=== PATIENT | female | born 1955 | race Caucasian/White ===

== ENCOUNTER 2025-01-14 01:17 | Emergency (ER) | payer MEDICARE, MEDICAID, SELFPAY ==
[2025-01-14 01:20] VITALS: PULSE 102; O2SAT 95; BMI 15.0
[2025-01-14 01:24] VITALS: BP 91/64; PULSE 126; RESP 20; O2SAT 97
--- NOTE | 2025-01-14 01:30 | XR_ITS ---
EXAMINATION: AP chest single view TECHNIQUE: AP portable upright chest single view Date and time: January 14, 2025, 0231 hours, comparison January 03, 2024 INDICATIONS: Shortness of breath and weakness beginning 2 weeks ago FINDINGS: Significant hyperexpansion Normal heart size Mildly prominent central pulmonary arteries Suspicious for 8 mm pulmonary nodule left upper lobe No pneumonia or pulmonary edema Prominent osteopenia IMPRESSION: COPD with significant hyperexpansion Recommend AP lordotic chest to exclude 8 mm pulmonary nodule left upper lobe
--- NOTE | 2025-01-14 01:30 | EKG_ITS ---
[facility] Test Date: 2025-01-14 Pat Name: NITISH NAVARRETE Department: Room: - Gender: Female [employer]: : 1955 Requested By: Melissa Trevino Order Number: [id number] Natacha MD: Melissa Trevino Measurements Intervals [place] Rate: 104 P: 81 NH: 120 QRS: 80 QRSD: 69 T: 76 QT: 338 QTc: 446 Interpretive Statements SINUS TACHYCARDIA WITH FREQUENT ECTOPIC PREMATURE COMPLEXES ABNORMAL RHYTHM ECG No previous ECG available for comparison /store/S0/[id number].pdf
--- NOTE | 2025-01-14 01:38 | PD.EDSOB ---
ED SOB =RME/HPI General Chief Complaint: Shortness of Breath/Dyspnea Stated Complaint: SOB Time Seen by Provider: 01/14/25 01:27 Arrival date/time: 01/14/25 01:17 RME / HPI RME / HPI Narrative: Patient is a 70-year-old female with a past medical history of hyperlipidemia, COPD, 25 pack year smoking history who presented to the emergency room with a chief complaint of shortness of breath and cough for the past 2 days. Patient takes both Advair and albuterol as needed at home when he gets short of breath. Denied sick contacts. No fevers, shakes, chills, sweats. No chest pain or dyspnea. No Diarrhea. NO urinary pain. Related Data Home Medications ?Medication ?Instructions ?Recorded ?Confirmed lovastatin 20 mg tablet 20 mg PO QPM 05/26/19 02/02/22 albuterol sulfate 90 mcg/actuation 1 puff inhalation Q4H PRN 02/02/22 02/02/22 aerosol inhaler (Ventolin HFA) SHORNTESS OF BREATH cholecalciferol (vitamin D3) 50 50 mcg PO QDAY 02/02/22 02/02/22 mcg (2,000 unit) capsule (Vitamin D3) sertraline 25 mg tablet 25 mg PO QDAY 02/02/22 02/02/22 Previous Rx's ?Medication ?Instructions ?Recorded fluticasone 250 mcg-salmeterol 50 1 inh inhalation BID #60 ea 02/03/22 mcg/dose blistr powdr for inhalation (Advair Diskus) phenazopyridine 200 mg tablet 200 mg PO TID 6 doses #6 tabs 04/04/23 (Pyridium) cefuroxime axetil 500 mg tablet 500 mg PO BID #14 tabs 02/10/25 Allergies Allergy/AdvReac Type Severity Reaction Status Date / Time No Known Allergies Allergy Verified 02/18/25 11:05 Review of Systems Review of Systems Narrative Review of Systems: General appearance: NO weight change, NO fatigue, NO weakness, NO fever, NO chills, NO night sweats, No cough Skin: NO rash, NO itching, NO sores, NO moles HEENT: NO Trauma, NO nausea, NO vomiting, NO visual changes, NO blurry vision, NO double vision, NO tinnitus, NO vertigo, NO ear discharge, NO rhinorrhea, NO stuffiness, NO sneezing, NO allergy, NO epistaxis. NO Hoarseness, NO sore throat, NO swollen neck. Cardiac: NO Palpitations, NO dyspnea on exertion, NO orthopnea, NO paroxysmal nocturnal dyspnea, NO edema Respiratory: Yes Shortness of Breath, NO Wheezing, Yes Cough, NO Sputum, NO hemoptysis GI:NO appetite, NO nausea, NO vomiting, NO dysphagia, NO changes in bowel frequency, NO stool color, NO diarrhea, NO constipation, NO hemetemesis, NO hemorrhoids, NO melena, NO hematechezia, NO abdominal pain, NO jaundice Renal: NO frequency, NO hesitancy, NO urgency, NO hematuria, NO nocturia, NO incontinence MSK: NO muscle weakness, NO gout, NO arthritis, NO muscle stiffness Neuro: NO headaches, NO tremors, NO weakness, NO paralysis, NO seizures, NO loss of consciousness, NO numbness. Hem: NO anemia, NO easy bruising/bleeding, NO petechiae, NO purpura Endo: NO heat/cold intolerance, NO excessive sweating, NO polyuria, NO polydipsia, NO polyphagia, NO thyroid problems, NO diabetes Pysch: NO mood, NO anxiety, NO depression ED Exam Narrative Physical exam: General Appearance: Alert & Oriented X3, thin female who is lying in bed in mild respiratory distress with active cough HEENT: atraumatic. Conjunctivae pin and moist. PERRLA. External ear without lesion or discharge. Intraoral mucosa pink, no lesions. Cardio: Normal Rate and Rhythm with S1 and S2 heart sounds. No murmurs or extra heart sounds auscultated. No bruits on carotid auscultation. No peripheral edema or cyanosis. Lungs: Symmetric with good expansion. Chest and back non-tender. Breath sounds vesicular with mild wheezing noted. Abdomen: Mild tenderness, Non-distended, Normal Reactive Bowel Sounds Neuro: Alert, cooperative, oriented to person, place, and time. Speech clear. CN grossly intact. Upper motor strength 5/5 and Lower motor strength 5/5. Sensation intact. Course Course Course Narrative: CBC CMP UA chest x-ray EKG Quality Measures none Orders Category Date Time Status Bedside COVID-19 Antigen Test NOW Care 01/14/25 01:31 Completed EKG (ED ONLY) *Do not use* NOW Care 01/14/25 01:30 Completed EKG (ED Only) Stat Exams 01/14/25 01:30 Draft XR chest 1V portable Stat Exams 01/14/25 01:30 Completed B-Type Natriuretic Peptide Stat Lab 01/14/25 01:48 Completed CBC Stat Lab 01/14/25 01:28 Completed Cocci Serology IgM with reflex to IgG [Cocci Serology, Lab 01/14/25 01:48 Completed Unk History] Stat Cocci Serology, IgG Stat Lab 01/14/25 01:48 Completed Comprehensive Metabolic Panel Stat Lab 01/14/25 01:48 Completed Drug Screen,Urine Stat Lab 01/14/25 02:00 Completed FLU A&B [Influenza A & B Rapid Panel] Stat Lab 01/14/25 01:51 Completed Magnesium Stat Lab 01/14/25 01:48 Completed Troponin I Stat Lab 01/14/25 01:48 Completed Urinalysis, C/S if Indicated Stat Lab 01/14/25 02:00 Completed Urine Culture Stat Lab 01/14/25 02:00 Completed Ipratropium [place] Rt Deyanira [Atrovent Rt Dyeanira] Med 01/14/25 01:30 Discontinued 1 mg INH X1 ONE Levalbuterol Rt [Xopenex Rt Deyanira] Med 01/14/25 01:30 Discontinued 1.25 mg INH X1 ONE MethylPREDNISolone. [SoluMEDROL Inj] Med 01/14/25 01:31 Discontinued 40 mg IVP X1 ONE Sodium Chloride Rt Deyanira 0.9% [NS Rt Deyanira 0.9%] Med 01/14/25 01:30 Discontinued 3 ml INH PRN PRN guaiFENesin SYRUP [Robitussin Syrup] Med 01/14/25 01:32 Discontinued 100 mg PO X1 ONE Vital Signs Vital signs: Vital Signs Pulse Rate 126 H 01/14/25 01:24 Respiratory Rate 20 01/14/25 01:24 Blood Pressure 91/64 01/14/25 01:24 Pulse Oximetry (%) 97 01/14/25 01:24 Oxygen Delivery Method Nasal Cannula 01/14/25 01:24 Oxygen Flow Rate 3 01/14/25 01:24 Shortness of Breath / Dyspnea Patient data External records reviewed:: [facility] previous records Clinical information provided by:: patient Social determinants that could affect healthcare access:: none Patient has the following chronic illnesses:: Patient is a 70-year-old female with a past medical history of hyperlipidemia, COPD secondary to smoking history about 25 pack year history who presented to the emergency room with a chief complaint of shortness of breath and cough. Patient takes his Advair and albuterol as needed. How is presenting disease/condition affected by chronic disease/condition?: exacerbated by (COPD ) Evaluation data The following diagnostics were reviewed and interpreted by me:: lab results and radiology exam(s) Lab and/or radiology exams considered but not ordered:: None Interpretation Summary: Patient is a 70 year old female that has a past medical history of COPD exacerbation. No leukocytosis. Negative COVID. Negative Flu. UA noted wbc of 73 and no bacteria and denied symptoms of UTI. Cocci ordered. Chest x-ray no pneumonia noted. COPD exacerbation which improved after Ipratropium and Levalbuterol. - The patient's plan was discussed with attending Dr. Garcia Trevino MD PGY2 Internal Medicine Medications / Prescriptions Medications or Prescriptions considered but not ordered:: None Medication administrations:: Medication Administration History Discontinued Medications Guaifenesin (Guaifenesin Syrup 200 Mg/10 Ml Udc) 100 mg PO X1 ONE; Protocol Stop: 01/14/25 01:33 Last Admin: 01/14/25 01:48 Dose: 100 mg Documented By: ROBYN Ipratropium [place] (Ipratropium Rt 0.5 Mg/ 2.5 Ml Nebu) 1 mg INH X1 ONE Stop: 01/14/25 01:31 Last Admin: 01/14/25 01:45 Dose: 1 mg Documented By: JAYCOB Levalbuterol HCl (Levalbuterol Rt 1.25 Mg/0.5 Ml Nebu) 1.25 mg INH X1 ONE Stop: 01/14/25 01:31 Last Admin: 01/14/25 01:45 Dose: 1.25 mg Documented By: JAYCOB Methylprednisolone Sodium Succinate (Methylprednisolone Sod Succ 40 Mg/Ml Vial) 40 mg IVP X1 ONE Stop: 01/14/25 01:32 Last Admin: 01/14/25 01:48 Dose: 40 mg Documented By: ROBYN Sodium Chloride (Sodium Chloride Rt Deyanira 0.9% 3 Ml Nebu) 3 ml INH PRN PRN PRN Reason: SOLN Stop: 02/13/25 01:29 Last Admin: 01/14/25 01:45 Dose: 3 ml Documented By: JAYCOB same as above Consultations Consultation(s) initiated? (list below): No Diagnosis Shortness of Breath Differential Diagnosis: acute exacerbation of chronic obstructive airways disease, community acquired pneumonia and other (ACS ) Most likely diagnosis given after review of the tests above:: Patient is a 70 year old female that has a past medical history of COPD exacerbation. No leukocytosis. Negative COVID. Negative Flu. UA noted wbc of 73 and no bacteria and denied symptoms of UTI. Cocci ordered. Chest x-ray no pneumonia noted. Troponin negative. COPD exacerbation which improved after Ipratropium and Levalbuterol. #COPD exacerbation - The patient's plan was discussed with attending Dr. Garcia Trevino MD PGY2 Internal Medicine Admission Indicated Admission indicated?: not indicated Admission Request Was there a request for admission?: No Disposition Plan Disposition Plan: Discharge Discharge Attestation Discharge Attestation: The patient and all family members were given an opportunity to ask questions and understood the discharge instructions. Discharge instructions specifically effects, indications for sooner follow up or return to the emergency department, and the expected course of current diagnosis. Patient condition: Stable Discharge Plan Plan Patient Disposition: HOME (Self Care) Patient condition on transfer: Stable Health Concerns: Instructions: -You experienced a COPD exacerbation. -Please continue to take your Advair inhaler twice daily as needed to help maintain your COPD. -Please take your Albuterol as needed for rescue, as prescribed by your primary care provider. -Please follow up with your primary care provider within one week of discharge -If your symptoms worsen,please seek immediate medical attention and return to your nearest emergency room -If you do not have a primary care provider, you may follow up at the [facility] at [facility] [address], [place] [address], Prescriptions/Referrals Prescriptions/Med Rec: Continued lovastatin 20 mg tablet 20 mg PO QPM sertraline 25 mg tablet 25 mg PO QDAY Patient Comments: TAKE 1 TABLET BY MOUTH EVERY DAY albuterol sulfate [Ventolin HFA] 90 mcg/actuation HFA aerosol inhaler 1 puff INHALATION Q4H PRN (Reason: SHORNTESS OF BREATH ) Patient Comments: INHALE ONE PUFF BY MOUTH EVERY 4 HOURS NEEDED FOR 30 DAYS cholecalciferol (vitamin D3) [Vitamin D3] 50 mcg (2,000 unit) Capsule 50 mcg PO QDAY fluticasone propion-salmeterol [Advair Diskus] 250-50 mcg/dose blister with device 1 inh inhalation BID Qty: 60 0RF phenazopyridine [Pyridium] 200 mg tablet 200 mg PO TID Qty: 6 0RF Discontinued prednisone 20 mg tablet See Taper PO QDAY Qty: 11 0RF Taper: Prednisone Taper 20 mg DAILY for 2 Days and 0 Hour 10 mg DAILY for 2 Days and 0 Hour 5 mg DAILY for 7 Days and 0 Hour cefpodoxime 200 mg tablet 200 mg PO BID Qty: 14 0RF Rx Instructions: must administer with a meal/food cephalexin 500 mg tablet 500 mg PO TID Qty: 21 0RF No Action cefuroxime axetil 500 mg tablet 500 mg PO BID Qty: 14 0RF Referrals: Sunday Orosco MD [Primary Care Provider, Family Practice] - In 1 week Problem List Clinical Impression: COPD exacerbation Patient/Caregiver Discharge Instructions Education Materials: COPD: Chronic Coughing Print Language: East Timorese Stand Alone Forms: Marah Award Info., Patient Portal Info Letter
[2025-01-14] MEDS: LEVALBUTEROL RT 1.25 MG/0.5 ML NEBU INH (01:45)
[2025-01-14] MEDS: IPRATROPIUM RT 0.5 MG/ 2.5 ML NEBU 1 MG INH (01:45)
[2025-01-14] MEDS: SODIUM CHLORIDE RT SOL 0.9% 3 ML NEBU INH (01:45)
[2025-01-14 01:46] VITALS: PULSE 119; RESP 24; O2SAT 98
[2025-01-14] MEDS: guaiFENesin SYRUP 200 MG/10 ML UDC 100 MG PO (01:48)
[2025-01-14 01:56] LABS: Basophils # (Auto) 0.1 Thou/mm3 (0.0-0.2); Basophils % (Auto) 1 % (0-2.5); Eosinophils # (Auto) 0.4 Thou/mm3 (0.0-0.5); Eosinophils % (Auto) 5 % (0-10); Hematocrit 42.2 % (36.0-46.0); Hemoglobin 14.7 g/dL (12.0-16.0); Immature Granulocytes Auto 0.01 Thou/mm3 (0.00-0.00); Lymphocytes # (Auto) 3.0 Thou/mm3 (1.0-4.8); Lymphocytes % (Auto) 45 % (10-50); Mean Corpuscular HGB Conc 34.8 g/dl (31.0-37.0); Mean Corpuscular Hemoglobin 30.2 pg (25.0-35.0); Mean Corpuscular Volume 87 fL (80-100); Monocytes # (Auto) 0.5 Thou/mm3 (0.0-0.8); Monocytes % (Auto) 8 % (0-12); Neutrophils # (Auto) 2.7 Thou/mm3 (1.8-7.7); Neutrophils % (Auto) 41 % (37-80); Nucleated Red Blood Cell # 0.00 Thou/mm3 (0.00-0.00); Nucleated Red Blood Cell % 0 /100 WBC (0); Platelet Count 373 Thou/mm3 (140-440); RDW Standard Deviation 40.3 fL (36.4-46.3); Red Blood Count 4.87 Miln/mm3 (4.00-5.20); White Blood Count 6.7 Thou/mm3 (3.6-11.0)
[2025-01-14 02:32] LABS: B-Type Natriuretic Peptide 48 pg/mL (0-100)
[2025-01-14 02:34] LABS: Collection Type, Urine Clean Catch
[2025-01-14 02:41] LABS: Influenza A Ag Negative; Influenza B Ag Negative
[2025-01-14 02:43] LABS: Amorphous Crystals,Urine Present (Absent); Bilirubin,Urine Negative (Negative); Blood,Urine 3+ (Negative); Budding Yeast,Urine Present; Clarity,Urine Turbid (Clear/Hazy); Glucose, Urine Negative (Negative); Ketones,Urine Negative (Negative); Leukocyte Esterase,Urine Negative (Negative); Nitrite,Urine Negative (Negative); PH,Urine 6.5 (5.0-7.0); Protein,Urine 1+ (Neg - Trace); RBC,Urine 2517 /hpf (0-3); Specific Gravity,Urine 1.016 (1.001-1.035); Squamous Epithelial Cell,Urine 1 /hpf (0-5); Urobilinogen,Urine Negative mg/dL (0.0-1.0); WBC,Urine 73 /hpf (0-5)
[2025-01-14 02:44] LABS: Color,Urine Lt-Orange (Lt Yel-Yel); Culture Indicated,Urine Yes
[2025-01-14 02:46] LABS: Amphetamine/Methamp Scrn,U Negative (Negative); Barbiturate Screen,Urine Negative (Negative); Benzodiazepines Screen,Urine Negative (Negative); Benzoylecgonine Screen, Ur Negative (Negative); Fentanyl Screen,Urine Negative (Negative); Opiate Screen,Urine Negative (Negative); THC Screen,Urine Negative (Negative)
[2025-01-14 02:55] LABS: Albumin, Serum 4.3 gm/dL (3.4-4.8); Albumin/Globulin Ratio 2.5 (1.2-2.2); Alkaline Phosphatase 61 U/L (46-116); Anion Gap 8 (7-16); Aspartate Amino Transferase 25 U/L (0-34); BUN/Creatinine Ratio 44 Ratio (12-20); Bilirubin,Total 0.3 mg/dL (0.3-1.2); Blood Urea Nitrogen 31 mg/dL (9-23); Calcium 9.1 mg/dL (8.3-10.6); Calcium (Corrected) 9.1 mg/dL (8.5-10.1); Carbon Dioxide 24.7 mMol/L (20.0-31.0); Chloride 108 mMol/L (98-107); Creatinine (Component) 0.7 mg/dL (0.6-1.3); Estimated Creatinine Clearance 43.5 mL/min (>60); Globulin 1.7 gm/dL (2.3-3.5); Glucose 105 mg/dL (74-106); Magnesium 1.9 mg/dL (1.6-2.6); Osmolality,Calculated 287 (275-295); Potassium 4.4 mMol/L (3.4-5.1); Sodium 141 mMol/L (136-145); Total Protein 6.0 gm/dL (5.7-8.2); Troponin I < 0.002 ng/mL (0.0-0.045); eGFR > 60 See Note
[2025-01-14 03:04] LABS: Alanine Aminotransferase 10 U/L (10-49)
[2025-01-14 03:35] VITALS: BP 102/65; PULSE 102; RESP 18; TEMP 36.7; O2SAT 93
--- NOTE | 2025-01-14 05:00 | PC.NURSE ---
md mtz made aware that pt is still tachy in the 100s. ok with discharging in this condition. no new orders at this time
[2025-01-14 05:17] VITALS: BP 95/58; PULSE 110; RESP 13; TEMP 37.2; O2SAT 96
[2025-01-14 13:43] LABS: Cocci Serology, IgM Negative (Negative)
[2025-01-15 12:52] LABS: Cocci Serology, IgG Negative (Negative)
== END 2025-01-14 05:40 | disposition home or self-care (01) ==
PROVIDERS: Emergency Provider Emergency Medicine; PCP Family Medicine
DX: J44.1 Chronic obstructive pulmonary disease with (acute) exacerbation (principal); Z11.52 Encounter for screening for COVID-19; E78.5 Hyperlipidemia, unspecified; Z87.891 Personal history of nicotine dependence
CPT/HCPCS: 36415; 71045; 80053; 80307; 81001; 83735; 83880; 84484; 85025; 86331; 86635; 87086; 87502; 87635; 93005; 94640; 96374; 99284; J2919; J7612; J7644; A9270

== ENCOUNTER 2025-02-18 11:03 | Emergency (ER) | payer MEDICARE, MEDICAID, SELFPAY ==
[2025-02-18 11:34] VITALS: BP 120/76; PULSE 108; RESP 17; TEMP 36.8; O2SAT 100; BMI 14.6
--- NOTE | 2025-02-18 12:13 | PD.EDRME ---
Rapid Medical Screening Exam RME Arrival date/time: 02/18/25 11:03 This is a 70-year-old female that comes into the emergency room with complaints of inability to urinate. Patient states she was seen here recently and was told she had a bladder infection and was given antibiotics. Patient states she still on antibiotics but she has not been able to urinate. Patient states she has the urge and it does burn to try to urinate but she has not been able to to urinate. Patient did have a CT scan last visit and was found to have a mass in her bladder. I have greeted and performed a focused initial assessment of this patient. Initial appropriate labs ordered at this time. A comprehensive ED assessment and evaluation of the patient and analysis of all test and completion of medical decision making process will be conducted by additional ED provider. Chief Complaint: Urogenital-Female Time Seen by Provider: 02/18/25 11:40 Vital signs: Vital Signs Temperature 98.2 F 02/18/25 11:34 Pulse Rate 108 H 02/18/25 11:34 Respiratory Rate 17 02/18/25 11:34 Blood Pressure 120/76 02/18/25 11:34 Pulse Oximetry (%) 100 02/18/25 11:34 Oxygen Delivery Method Nasal Cannula 02/18/25 11:34 Oxygen Flow Rate 2 02/18/25 11:34 Exam: Alert and oriented, breathing even and unlabored, skin warm and dry Clinical Impression: dysuria
[2025-02-18 12:43] LABS: Collection Type, Urine Voided; Squamous Epithelial Cell,Urine 0 /hpf (0-5)
[2025-02-18 12:56] LABS: Basophils # (Auto) 0.1 Thou/mm3 (0.0-0.2); Basophils % (Auto) 1 % (0-2.5); Eosinophils # (Auto) 0.1 Thou/mm3 (0.0-0.5); Eosinophils % (Auto) 2 % (0-10); Hematocrit 31.5 % (36.0-46.0); Hemoglobin 10.4 g/dL (12.0-16.0); Immature Granulocytes Auto 0.02 Thou/mm3 (0.00-0.00); Lymphocytes # (Auto) 2.1 Thou/mm3 (1.0-4.8); Lymphocytes % (Auto) 37 % (10-50); Mean Corpuscular HGB Conc 33.0 g/dl (31.0-37.0); Mean Corpuscular Hemoglobin 29.8 pg (25.0-35.0); Mean Corpuscular Volume 90 fL (80-100); Monocytes # (Auto) 0.6 Thou/mm3 (0.0-0.8); Monocytes % (Auto) 10 % (0-12); Neutrophils # (Auto) 2.8 Thou/mm3 (1.8-7.7); Neutrophils % (Auto) 49 % (37-80); Nucleated Red Blood Cell # 0.00 Thou/mm3 (0.00-0.00); Nucleated Red Blood Cell % 0 /100 WBC (0); Platelet Count 455 Thou/mm3 (140-440); RDW Standard Deviation 44.4 fL (36.4-46.3); Red Blood Count 3.49 Miln/mm3 (4.00-5.20); White Blood Count 5.7 Thou/mm3 (3.6-11.0)
[2025-02-18 13:06] LABS: Alanine Aminotransferase 11 U/L (10-49); Albumin, Serum 4.1 gm/dL (3.4-4.8); Albumin/Globulin Ratio 1.6 (1.2-2.2); Alkaline Phosphatase 64 U/L (46-116); Anion Gap 9 (7-16); Aspartate Amino Transferase 21 U/L (0-34); BUN/Creatinine Ratio 28 Ratio (12-20); Bilirubin,Total 0.5 mg/dL (0.3-1.2); Blood Urea Nitrogen 14 mg/dL (9-23); Calcium 9.2 mg/dL (8.3-10.6); Calcium (Corrected) 9.2 mg/dL (8.5-10.1); Carbon Dioxide 26.3 mMol/L (20.0-31.0); Chloride 106 mMol/L (98-107); Creatinine (Component) 0.5 mg/dL (0.6-1.3); Estimated Creatinine Clearance 60.8 mL/min (>60); Globulin 2.6 gm/dL (2.3-3.5); Glucose 109 mg/dL (74-106); Osmolality,Calculated 282 (275-295); Potassium 3.8 mMol/L (3.4-5.1); Sodium 141 mMol/L (136-145); Total Protein 6.7 gm/dL (5.7-8.2); eGFR > 60 See Note
[2025-02-18 13:27] LABS: Bilirubin,Urine Negative (Negative); Blood,Urine 3+ (Negative); Culture Indicated,Urine Not Indicated; Glucose, Urine Negative (Negative); Ketones,Urine Negative (Negative); Leukocyte Esterase,Urine Positive (Negative); Nitrite,Urine Negative (Negative); PH,Urine 6.5 (5.0-7.0); Protein,Urine 2+ (Neg - Trace); RBC,Urine 4188 /hpf (0-3); Specific Gravity,Urine 1.011 (1.001-1.035); Urobilinogen,Urine Negative mg/dL (0.0-1.0); WBC,Urine 5 /hpf (0-5)
[2025-02-18 13:29] LABS: Clarity,Urine Bloody (Clear/Hazy); Color,Urine Drk-Red (Lt Yel-Yel)
--- NOTE | 2025-02-18 14:37 | EDNOTE_ITS ---
ED General RME/HPI General Chief complaint: Urogenital-Female Stated complaint: HAS NOT URINATED IN 3 DAYS Time Seen by Provider: 02/18/25 11:40 Arrival date/time: 02/18/25 11:03 CC: Difficulty urinating and when she does it is bright red urine HPI onset 3 days ago. Patient was seen here February 10 was determined to have a mass in her bladder. Patient denies any painful urination but states has difficulty pushing the urine out . Patient denies fever chills chest pain shortness of breath or difficulty breathing. Patient informs that she saw her PCP promptly after the ER visit to the emergency room on February 10, and an outpatient referral to urology was placed. RME / HPI RME / HPI narrative: 02/18/25 11:03 This is a 70-year-old female that comes into the emergency room with complaints of inability to urinate. Patient states she was seen here recently and was told she had a bladder infection and was given antibiotics. Patient states she still on antibiotics but she has not been able to urinate. Patient states she has the urge and it does burn to try to urinate but she has not been able to to urinate. Patient did have a CT scan last visit and was found to have a mass in her bladder. I have greeted and performed a focused initial assessment of this patient. Initial appropriate labs ordered at this time. A comprehensive ED assessment and evaluation of the patient and analysis of all test and completion of medical decision making process will be conducted by additional ED provider. Exam: Alert and oriented, breathing even and unlabored, skin warm and dry Impression: dysuria Related Data Home Medications ?Medication ?Instructions ?Recorded ?Confirmed lovastatin 20 mg tablet 20 mg PO QPM 05/26/19 albuterol sulfate 90 mcg/actuation 1 puff inhalation Q 4H PRN 02/02/22 02/02/22 aerosol inhaler (Ventolin HFA) SHORNTESS OF BREATH cholecalciferol (vitamin D3) 50 50 mcg PO QDAY 2 02/02/22 mcg (2,000 unit) capsule (Vitamin D3) sertraline 25 mg tablet 25 mg PO QDAY 02/02/2202/02 Previous Rx's ?Medication ?Instructions ?Recorded fluticasone 250 mcg-salmeterol 50 1 inh inhalation BID #60 ea 02/03/22 mcg/dose blistr powdr for inhalation (Advair Diskus) phenazopyridine 200 mg tablet 200 mg PO TID 6 doses #6 tabs 04/04/23 (Pyridium) cefuroxime axetil 500 mg tablet 500 mg PO BID #14 tabs 02/10/25 Allergies Allergy/AdvReac Type Severity Reaction Status Date / Time No Known Allergies Allergy Verified 02/18/25 11:05 Review of Systems Review of Systems Narrative Review of Systems: GEN: No fever, no chills, no weight loss EYES: No discharge, no visual changes, no pain HEENT: No ear pain, no congestion, no sore throat PULM: No shortness of breath, no cough, no congestion CV: No chest pain, no dyspnea on exertion, no palpitations GI: No nausea, no vomiting, no diarrhea, no pain, no constipation : No frequency, no urgency, no dysuria,+ urinary retention, + hematuria MUSC/SKEL: No joint pain, no back pain SKIN: No rash PSYCH: No hallucinations, no depression HEME/LYMPH: No easy bleeding or bruising tendencies NEURO: No weakness, no headache Past Medical History Past Medical History CARDIAC: Positive Cardiac Disorders and Hypercholesterolemia; Negative Congestive Heart Failure RESPIRATORY: Positive Chronic Obstructive Pulmonary Disease (COPD), Asthma and Bronchitis GENITOURINARY: Negative Renal Disease ENDOCRINE: Negative Diabetes Mellitus Type 1 or Diabetes Mellitus Type 2 HEMATOLOGIC: Negative Sickle Cell Disease Surgical History SURGICAL: Positive Hysterectomy and Section (x3) Social History SMOKING STATUS: Never smoker SUBSTANCE USE: does not use ED Exam Narrative Physical exam: [General: Thin borderline emaciated not in any acute distress Head normocephalic HEENT: Within acceptable limits Neck is supple nontender Chest equal chest rise nontender to palpation Respiratory: Clear to auscultation no wheezes crackles or rubs CV: Rate rhythm is regular no murmurs rubs or clicks Abdomen is flat, soft nontender no masses positive bowel sounds all 4 quadrants Back: No CVA tenderness no spinous process tenderness from cervical spine thoracic and lumbar spine Skin: Intact no petechiae rash induration ulceration or crepitus Extremities: Moving all extremity against resistance cap refill less than 2 seconds neurosensory intact Neuro: Awake alert oriented x3 Glascow coma 15 no focal deficits] Course Course Course Narrative: Patient has cleared to the point of being very pale red and the continuous bladder irrigation. At this time we will leave the Ruiz catheter in and switch her over to a leg bag. Patient already has an outpatient referral for urology. After multiple draining's and IV fluids her hematocrit has dropped minimal mentally from 10.3-10.2. At this time I will discharge her home with a Ruiz catheter in and advised her if there is a worsening of bleeding she is to return to the emergency room for reevaluation. Patient is in agreement with this plan currently the patient has stable vital signs is awake and alert oriented. At the time of the changeover at 2145 to a leg bag the patient returned to bright red hematuria. This after 2 bags of CBI fluids. At this time I elected to attempt to transfer the patient for urology secondary to gross hematuria with bladder masses. Patient accepted by Dr. Neal at [facility]. Patient in agreement with this plan Quality Measures none Orders Category Date Time Status Continuous Bladder Irrigation QSHIFT Care 02/18/25 14:31 Completed NPO NOW Care 02/18/25 23:04 Completed Saline [Insert IV] NOW Care 02/18/25 16:29 Completed Diet NPO (NOW) Diet 02/18/25 23:[address] pelvis wo con Stat Exams 02/18/25 17:43 Completed CBC Stat Lab 02/18/25 11:32 Completed CBC Stat Lab 02/18/25 18:03 Completed Comprehensive Metabolic Panel Stat Lab 02/18/25 11:32 Completed Urinalysis, C/S if Indicated Stat Lab 02/18/25 12:35 Completed Urine Culture Stat Lab 02/18/25 12:35 Received Sodium Chloride 0.9% 500 ml [Ns] 500 ml Med 02/18/25 16:29 Discontinued IV 999 mls/hr Vital Signs Vital signs: Vital Signs Temperature 98.2 F 02/18/25 11:34 Pulse Rate 108 H 02/18/25 11:34 Respiratory Rate 17 02/18/25 11:34 Blood Pressure 120/76 02/18/25 11:34 Pulse Oximetry (%) 100 02/18/25 11:34 Oxygen Delivery Method Nasal Cannula 02/18/25 11:34 Oxygen Flow Rate 2 02/18/25 11:34 Discharge Plan Plan Patient Disposition: [facility] Acute Care Fac Service Needed for Transfer: Urology Patient condition on transfer: Stable Prescriptions/Referrals Prescriptions/Med Rec: No Action lovastatin 20 mg tablet 20 mg PO QPM cefuroxime axetil 500 mg tablet 500 mg PO BID Qty: 14 0RF sertraline 25 mg tablet 25 mg PO QDAY Patient Comments: TAKE 1 TABLET BY MOUTH EVERY DAY albuterol sulfate [Ventolin HFA] 90 mcg/actuation HFA aerosol inhaler 1 puff INHALATION Q4H PRN (Reason: SHORNTESS OF BREATH ) Patient Comments: INHALE ONE PUFF BY MOUTH EVERY 4 HOURS NEEDED FOR 30 DAYS cholecalciferol (vitamin D3) [Vitamin D3] 50 mcg (2,000 unit) Capsule 50 mcg PO QDAY fluticasone propion-salmeterol [Advair Diskus] 250-50 mcg/dose blister with device 1 inh inhalation BID Qty: 60 0RF phenazopyridine [Pyridium] 200 mg tablet 200 mg PO TID Qty: 6 0RF Referrals: Sunday Orosco MD [Primary Care Provider, Family Practice] - In 1 week Problem List Clinical Impression: Hematuria, Bladder mass, Anemia Patient/Caregiver Discharge Instructions Print Language: Tamazight Stand Alone Forms: [employer] Info., Patient Portal Info Letter PA/CHILD WATCH ATTENDANT Supervising Physician PA/CHILD WATCH ATTENDANT Supervising Physician: Andrew Braswell ENP [facility] Clinical Information Provided by: patient Medical Records reviewed [facility] Meds/Rx considered, not ordered None Labs/Rad/Tests considered, not ordered None Chronic Illness/Social Conditions Explain: COPD, asthma, quit smoking years ago . EKG EKG not done Labs Labs: interpreted by ks Lab(s) Interpretation(s): CBC shows no leukocytosis H&H of 10.4 and 31.5 respectively note: This is 2 g below the hematocrit from 9 days ago. Platelets at 455. CMP showed no significant electrolyte imbalances renal impairment transaminitis or T. bili elevation. Urine is dark red bloody 3+ blood 5 WBCs no bacteria leukocyte esterase positive nitrite negative. Imaging Imaging interpretation: interpreted by ks Imaging Interpretation(s): Image from a chest abdomen pelvis CT on February 10 shows a large mass in the bladder. Medication Administration(s) Medication Administration History Discontinued Medications Sodium Chloride (Ns) 500 mls @ 999 mls/hr IV .Q31M ONE Stop: 02/18/25 16:59 Last Infusion: 02/18/25 19:11 Dose: Infused Documented By: Admin: 02/18/25 17:00 Dose: 999 mls/hr Documented By: OZZIE
[2025-02-18 16:02] VITALS: BP 89/65; PULSE 93; RESP 25; TEMP 36.8; O2SAT 100
[2025-02-18] MEDS: SODIUM CHLORIDE 0.9% 500 ML 500 ML 999 ML IV (17:00)
--- NOTE | 2025-02-18 17:43 | XR_ITS ---
Examination: CT pelvis without intravenous contrast. 2-D sagittal and coronal reconstructions. Date and time of exam: February 18, 2025, 1822 hours, comparison CT chest abdomen pelvis February 10, 2025 INDICATIONS: Multiple ill-defined enhancing masses within the bladder on CT pelvis February 10, 2025 CTDI: vol (mGy) : 3.02 DLP: (mGycm) : 87.4 Technique: Multiple 3 mm axial sections of the pelvis have been obtained with the 64 slice high resolution scanner. 2-D sagittal and coronal reconstructions. Low dose protocols were performed. One or more of the following dose reduction techniques were used; automated exposure control, adjustment of the mA and/or KV according to patient size, use of iterative reconstruction technique. Findings: Normal appendix Right kidney visualized no hydronephrosis No bowel obstruction Multiple bladder masses again depicted on this noncontrast study, the largest appears to measure at least 4.8 cm in dimension and more caudad mass 6.6 cm in dimension Urinary Ruiz catheter Severe osteopenia IMPRESSION: Multiple bladder masses again noted
[2025-02-18 18:10] LABS: Basophils # (Auto) 0.1 Thou/mm3 (0.0-0.2); Basophils % (Auto) 1 % (0-2.5); Eosinophils # (Auto) 0.1 Thou/mm3 (0.0-0.5); Eosinophils % (Auto) 1 % (0-10); Hematocrit 30.8 % (36.0-46.0); Hemoglobin 10.3 g/dL (12.0-16.0); Immature Granulocytes Auto 0.02 Thou/mm3 (0.00-0.00); Lymphocytes # (Auto) 1.9 Thou/mm3 (1.0-4.8); Lymphocytes % (Auto) 31 % (10-50); Mean Corpuscular HGB Conc 33.4 g/dl (31.0-37.0); Mean Corpuscular Hemoglobin 30.2 pg (25.0-35.0); Mean Corpuscular Volume 90 fL (80-100); Monocytes # (Auto) 0.6 Thou/mm3 (0.0-0.8); Monocytes % (Auto) 9 % (0-12); Neutrophils # (Auto) 3.6 Thou/mm3 (1.8-7.7); Neutrophils % (Auto) 57 % (37-80); Nucleated Red Blood Cell # 0.00 Thou/mm3 (0.00-0.00); Nucleated Red Blood Cell % 0 /100 WBC (0); Platelet Count 383 Thou/mm3 (140-440); RDW Standard Deviation 44.9 fL (36.4-46.3); Red Blood Count 3.41 Miln/mm3 (4.00-5.20); White Blood Count 6.2 Thou/mm3 (3.6-11.0)
[2025-02-18 18:49] VITALS: BP 104/64; PULSE 101; RESP 18; TEMP 36.9; O2SAT 100
[2025-02-18 20:25] VITALS: BP 104/53; PULSE 102; RESP 104; TEMP 36.8; O2SAT 100
[2025-02-18 21:31] VITALS: BP 108/63; PULSE 99; RESP 17; TEMP 37.1; O2SAT 96
[2025-02-18 23:44] VITALS: BP 113/52; PULSE 101; RESP 18; TEMP 36.8; O2SAT 100
--- NOTE | 2025-02-18 23:52 | PC.NURSE ---
REPORT CALLED TO RADHA LICONA AT [facility].
[2025-02-19 00:52] VITALS: BP 117/50; PULSE 95; RESP 19; TEMP 36.9; O2SAT 98
--- NOTE | 2025-02-19 00:52 | PC.NURSE ---
EMS AT BEDSIDE, BEDSIDE REPORT GIVEN. RADHA LICONA AT [facility] UPDATED WITH ETA.
== END 2025-02-19 00:53 | disposition short-term general hospital (02) ==
PROVIDERS: Nurse Practitioner Family; Registered Nurse General Practice; Emergency Provider Emergency Medicine; PCP Family Medicine
DX: N32.89 Other specified disorders of bladder (principal); D64.9 Anemia, unspecified; R31.9 Hematuria, unspecified; Z75.1 Person awaiting admission to adequate facility elsewhere
CPT/HCPCS: 36415; 51702; 72192; 80053; 81001; 85025; 86850; 86900; 86901; 87086; 96360; 96361; 99284; A4314; J7999